=== PATIENT | female | born 1970 | race Caucasian/White ===

== ENCOUNTER 2020-08-16 09:04 | Outpatient (REF) | payer BC, SELFPAY ==
[2020-08-16 11:00] LABS: MANUAL DIFF FLAG NO
[2020-08-16 11:07] LABS: Basophils Percent Auto 0.5 % (0-2); Eosinophils Percent Auto 0.5 % (0-4); Hematocrit 39.1 % (37-47); Hemoglobin 13.3 g/dl (12.0-16.0); Imm Gran Abs Auto 0.01 X10*3/uL (0.00-0.03); Imm Gran Pct Auto 0.2 % (0.0-0.4); Lymphocytes Absolute Auto 1.1 X10*3/uL (1.2-4.9); Lymphocytes Percent Auto 27.7 % (20-40); Mean Corpuscular Hemoglobin 32.4 pg (27.0-33.0); Mean Corpuscular Volume 95.4 fL (80-98); Mean Platelet Volume 10.6 fL (9.4-12.3); Monocytes Absolute Auto 0.3 X10*3/uL (0.1-1.2); Monocytes Percent Auto 7.1 % (2-11); Neutrophils Absolute Auto 2.6 X10*3/uL (2.0-8.3); Platelet Count 216 X10*3/uL (160-400); Red Cell Distribution Width 12.3 % (11.0-16.0); White Blood Count 4.1 X10*3/uL (4.8-10.8)
[2020-08-16 11:47] LABS: Alanine Aminotransferase 13 U/L (0-31); Albumin Level 4.2 g/dL (3.5-5.0); Alkaline Phosphatase 41 U/L (39-117); Anion Gap 12 (12-20); Aspartate Amino Transferase 18 U/L (5-31); Bilirubin Total 0.4 mg/dL (0.0-1.0); Blood Urea Nitrogen 12 mg/dL (9-16); Carbon Dioxide 29 mmol/L (22-29); Chloride 103 mmol/L (96-108); Cholesterol 213 mg/dL; Estimated Glomerular Filt Rate > 60; Glucose Fasting 95 mg/dL (60-99); HDL Cholesterol 87 mg/dL; LDL Cholesterol Calculated 110 mg/dl; Potassium 4.7 mmol/l (3.3-5.1); Sodium 139 mmol/L (135-145); Total Protein 6.8 g/dL (6.5-8.0); Triglycerides 83 mg/dL
== END 2020-08-16 09:05 | disposition home or self-care (01) ==
LOC: HO.10HDL 09:04
PROVIDERS: Visit Provider Internal Medicine
DX: Z00.00 Encounter for general adult medical examination without abnormal findings (principal)
CPT/HCPCS: 36415; 80053; 80061; 85025

== ENCOUNTER 2020-09-27 11:51 | Outpatient (REF) | payer BC, SELFPAY | END 2020-09-27 11:52 | disposition home or self-care (01) | LOC: HO.WFDLDS 11:51 | PROVIDERS: Visit Provider Internal Medicine | DX: Z20.828 Contact with and (suspected) exposure to other viral communicable diseases (principal) | CPT/HCPCS: C9803; U0003 ==

== ENCOUNTER 2020-12-20 10:26 | Outpatient (REF) | payer BC, SELFPAY | END 2020-12-20 10:27 | disposition home or self-care (01) | LOC: HO.LAB 10:26 | PROVIDERS: Visit Provider Hospitalist | DX: Z20.822 Contact with and (suspected) exposure to COVID-19 (principal) | CPT/HCPCS: 36415; U0003; U0005 ==

== ENCOUNTER 2021-09-19 08:49 | Outpatient (REF) | payer BC, SELFPAY ==
[2021-09-19 10:21] LABS: Basophils Percent Auto 0.5 % (0-2); Eosinophils Absolute Auto 0.1 X10*3/uL (0.0-0.4); Eosinophils Percent Auto 1.2 % (0-4); Hematocrit 39.2 % (37.0-47.0); Hemoglobin 13.3 g/dl (12.0-16.0); Imm Gran Abs Auto 0.01 X10*3/uL (0.00-0.03); Imm Gran Pct Auto 0.2 % (0.0-0.4); Lymphocytes Absolute Auto 1.6 X10*3/uL (1.2-4.9); Lymphocytes Percent Auto 37.8 % (20-40); MANUAL DIFF FLAG NO; Mean Corpuscular HGB Conc 33.9 g/dl (31.0-35.0); Mean Corpuscular Hemoglobin 31.3 pg (27.0-33.0); Mean Corpuscular Volume 92.2 fL (80.0-98.0); Mean Platelet Volume 9.9 fL (9.4-12.3); Monocytes Absolute Auto 0.3 X10*3/uL (0.1-1.2); Monocytes Percent Auto 6.9 % (2-11); Neutrophils Absolute Auto 2.2 x10*3/uL (2.0-8.3); Neutrophils Percent Auto 53.4 % (45-73); Platelet Count 230 X10*3/uL (160-400); Red Blood Count 4.25 X10*6/uL (4.20-5.50); Red Cell Distribution Width 12.4 % (11.0-16.0); White Blood Count 4.2 X10*3/uL (4.8-10.8)
[2021-09-19 10:42] LABS: Alanine Aminotransferase 13 U/L (0-31); Albumin Level 4.2 g/dL (3.5-5.0); Alkaline Phosphatase 46 U/L (39-117); Anion Gap 11 (12-20); Aspartate Amino Transferase 18 U/L (5-31); Bilirubin Total 0.4 mg/dL (0.0-1.0); Blood Urea Nitrogen 13 mg/dL (9-16); Calcium 9.1 mg/dL (8.4-10.2); Carbon Dioxide 28 mmol/L (22-29); Chloride 106 mmol/L (96-108); Cholesterol 220 mg/dL; Estimated Glomerular Filt Rate > 60; Glucose Fasting 97 mg/dL (60-99); HDL Cholesterol 69 mg/dL; LDL Cholesterol Calculated 140 mg/dl; Potassium 4.3 mmol/L (3.3-5.1); Sodium 141 mmol/L (135-145); Total Protein 6.6 g/dL (6.5-8.0); Triglycerides 59 mg/dL
[2021-09-19 11:03] LABS: Vitamin D 25-OH Total 40.5 ng/mL (>30)
== END 2021-09-19 08:50 | disposition home or self-care (01) ==
LOC: HO.10HDL 08:49
PROVIDERS: Visit Provider Internal Medicine
DX: Z00.00 Encounter for general adult medical examination without abnormal findings (principal)
CPT/HCPCS: 36415; 80053; 80061; 82306; 85025

== ENCOUNTER 2022-02-15 10:54 | Outpatient (REF) | payer BC, SELFPAY ==
[2022-02-15 13:58] LABS: Cholesterol 207 mg/dL; HDL Cholesterol 57 mg/dL; LDL Cholesterol Calculated 137 mg/dl; Triglycerides 65 mg/dL
== END 2022-02-15 10:55 | disposition home or self-care (01) ==
LOC: HO.10HDL 10:54
PROVIDERS: Visit Provider Internal Medicine
DX: E78.00 Pure hypercholesterolemia, unspecified (principal)
CPT/HCPCS: 36415; 80061

== ENCOUNTER 2022-04-11 07:50 | Outpatient (REF) | payer BC, SELFPAY ==
[2022-04-11 11:49] LABS: Alanine Aminotransferase 13 U/L (0-31); Aspartate Amino Transferase 18 U/L (5-31); Cholesterol 201 mg/dL; HDL Cholesterol 61 mg/dL; LDL Cholesterol Calculated 127 mg/dl; Triglycerides 66 mg/dL
== END 2022-04-11 07:51 | disposition home or self-care (01) ==
LOC: HO.WFDLDS 07:50
PROVIDERS: Visit Provider Internal Medicine
DX: E78.00 Pure hypercholesterolemia, unspecified (principal)
CPT/HCPCS: 36415; 80061; 82550; 84450; 84460

== ENCOUNTER 2023-05-01 09:07 | Outpatient (REF) | payer BC, SELFPAY ==
[2023-05-01 10:37] LABS: MANUAL DIFF FLAG NO
[2023-05-01 10:43] LABS: Basophils Percent Auto 0.4 % (0-2); Eosinophils Percent Auto 0.4 % (0-4); Hematocrit 41.7 % (37.0-47.0); Hemoglobin 13.7 g/dl (12.0-16.0); Imm Gran Abs Auto 0.01 X10*3/uL (0.00-0.03); Imm Gran Pct Auto 0.2 % (0.0-0.4); Lymphocytes Absolute Auto 1.3 X10*3/uL (1.2-4.9); Lymphocytes Percent Auto 27.5 % (20-40); Mean Corpuscular HGB Conc 32.9 g/dl (31.0-35.0); Mean Corpuscular Hemoglobin 30.6 pg (27.0-33.0); Mean Corpuscular Volume 93.1 fL (80.0-98.0); Mean Platelet Volume 9.9 fL (9.4-12.3); Monocytes Absolute Auto 0.3 X10*3/uL (0.1-1.2); Monocytes Percent Auto 6.4 % (2-11); Neutrophils Absolute Auto 3.2 x10*3/uL (2.0-8.3); Neutrophils Percent Auto 65.1 % (45-73); Platelet Count 226 X10*3/uL (160-400); Red Blood Count 4.48 X10*6/uL (4.20-5.50); Red Cell Distribution Width 13.1 % (11.0-16.0); White Blood Count 4.9 X10*3/uL (4.8-10.8)
[2023-05-01 11:07] LABS: Alanine Aminotransferase 12 U/L (0-31); Albumin Level 4.5 g/dL (3.5-5.0); Alkaline Phosphatase 52 U/L (39-117); Anion Gap 15 (12-20); Aspartate Amino Transferase 21 U/L (5-31); Bilirubin Total 0.6 mg/dL (0.0-1.0); Blood Urea Nitrogen 15 mg/dL (9-16); Calcium 9.9 mg/dL (8.4-10.2); Carbon Dioxide 28 mmol/L (22-29); Chloride 101 mmol/L (96-108); Cholesterol 226 mg/dL; Estimated Glomerular Filt Rate > 60; Glucose Fasting 93 mg/dL (60-99); HDL Cholesterol 78 mg/dL; LDL Cholesterol Calculated 139 mg/dl; Potassium 4.8 mmol/L (3.3-5.1); Sodium 139 mmol/L (135-145); Total Protein 7.3 g/dL (6.5-8.0); Triglycerides 48 mg/dL
== END 2023-05-01 09:08 | disposition home or self-care (01) ==
LOC: HO.10HDL 09:07
PROVIDERS: Visit Provider Internal Medicine
DX: Z00.00 Encounter for general adult medical examination without abnormal findings (principal)
CPT/HCPCS: 36415; 80053; 80061; 85025

== ENCOUNTER 2023-09-06 | Outpatient (REF) | payer BC, SELFPAY ==
[2023-09-07 14:37] LABS: Adenovirus F 40/41 Not Detected (Not Detect.); Astrovirus Not Detected (Not Detect.); Cryptosporidium Not Detected (Not Detect.); Cyclospora cayetanensis Not Detected (Not Detect.); E. coli EAEC Not Detected (Not Detect.); E. coli EPEC Not Detected (Not Detect.); E. coli ETEC Not Detected (Not Detect.); E. coli STEC Not Detected (Not Detect.); Entamoeba histolytica Not Detected (Not Detect.); Giardia lamblia Not Detected (Not Detect.); Norovirus GI/GII Not Detected (Not Detect.); Plesiomonas shigelloides Not Detected (Not Detect.); Rotavirus A Not Detected (Not Detect.); Salmonella Not Detected (Not Detect.); Sapovirus Not Detected (Not Detect.); Shigella sp./EIEC Not Detected (Not Detect.); Vibrio Not Detected (Not Detect.); Vibrio Cholerae Not Detected (Not Detect.); Yersinia enterocolitica Not Detected (Not Detect.)
[2023-09-07 15:32] LABS: Campylobacter Detected (Not Detect.)
== END 2023-09-06 00:01 | disposition home or self-care (01) ==
LOC: HO.LNP
PROVIDERS: Visit Provider Internal Medicine
DX: R10.9 Unspecified abdominal pain (principal); R19.7 Diarrhea, unspecified
CPT/HCPCS: 87507

== ENCOUNTER 2023-09-17 10:45 | Outpatient (REF) | payer BC, SELFPAY ==
[2023-09-17 13:07] LABS: MANUAL DIFF FLAG NO
[2023-09-17 13:28] LABS: Basophils Percent Auto 0.5 % (0-2); Eosinophils Percent Auto 0.5 % (0-4); Hemoglobin 12.5 g/dl (12.0-16.0); Imm Gran Abs Auto 0.01 X10*3/uL (0.00-0.03); Imm Gran Pct Auto 0.3 % (0.0-0.4); Lymphocytes Absolute Auto 1.3 X10*3/uL (1.2-4.9); Lymphocytes Percent Auto 35.5 % (20-40); Mean Corpuscular HGB Conc 32.9 g/dl (31.0-35.0); Mean Corpuscular Hemoglobin 30.6 pg (27.0-33.0); Mean Corpuscular Volume 92.9 fL (80.0-98.0); Mean Platelet Volume 9.6 fL (9.4-12.3); Monocytes Absolute Auto 0.4 X10*3/uL (0.1-1.2); Monocytes Percent Auto 9.8 % (2-11); Neutrophils Percent Auto 53.4 % (45-73); Platelet Count 467 X10*3/uL (160-400); Red Blood Count 4.09 X10*6/uL (4.20-5.50); Red Cell Distribution Width 12.6 % (11.0-16.0); White Blood Count 3.7 X10*3/uL (4.8-10.8)
[2023-09-17 13:56] LABS: Alanine Aminotransferase 43 U/L (0-31); Albumin Level 4.1 g/dL (3.5-5.0); Alkaline Phosphatase 51 U/L (39-117); Anion Gap 12 (12-20); Aspartate Amino Transferase 33 U/L (5-31); Bilirubin Total 0.5 mg/dL (0.0-1.0); Blood Urea Nitrogen 9 mg/dL (9-16); Calcium 9.2 mg/dL (8.4-10.2); Carbon Dioxide 27 mmol/L (22-29); Chloride 105 mmol/L (96-108); Cholesterol 215 mg/dL (<200); Estimated Glomerular Filt Rate > 60; Glucose Fasting 97 mg/dL (60-99); HDL Cholesterol 51 mg/dL (>40); LDL Cholesterol Calculated 140 mg/dL (<100); Sodium 140 mmol/L (135-145); Total Protein 6.9 g/dL (6.5-8.0); Triglycerides 123 mg/dL (<150)
[2023-09-17 14:01] LABS: Vitamin D 25-OH Total 49.1 ng/mL (>30)
[2023-09-17 14:54] LABS: CDiff Gene PCR NEGATIVE (Negative)
[2023-09-17 15:30] LABS: Adenovirus F 40/41 Not Detected (Not Detect.); Astrovirus Not Detected (Not Detect.); Campylobacter Not Detected (Not Detect.); Cryptosporidium Not Detected (Not Detect.); Cyclospora cayetanensis Not Detected (Not Detect.); E. coli EAEC Not Detected (Not Detect.); E. coli EPEC Not Detected (Not Detect.); E. coli ETEC Not Detected (Not Detect.); E. coli STEC Not Detected (Not Detect.); Entamoeba histolytica Not Detected (Not Detect.); Giardia lamblia Not Detected (Not Detect.); Norovirus GI/GII Not Detected (Not Detect.); Plesiomonas shigelloides Not Detected (Not Detect.); Rotavirus A Not Detected (Not Detect.); Salmonella Not Detected (Not Detect.); Sapovirus Not Detected (Not Detect.); Shigella sp./EIEC Not Detected (Not Detect.); Vibrio Not Detected (Not Detect.); Vibrio Cholerae Not Detected (Not Detect.); Yersinia enterocolitica Not Detected (Not Detect.)
== END 2023-09-17 10:46 | disposition home or self-care (01) ==
LOC: HO.10HDL 10:45
PROVIDERS: Visit Provider Internal Medicine
DX: E78.00 Pure hypercholesterolemia, unspecified (principal); E55.9 Vitamin D deficiency, unspecified; R50.9 Fever, unspecified; R19.7 Diarrhea, unspecified
CPT/HCPCS: 36415; 80053; 80061; 82306; 85025; 87493; 87507

== ENCOUNTER 2024-05-20 15:20 | Outpatient (REF) | payer BC, SELFPAY ==
[2024-05-20 15:34] LABS: MANUAL DIFF FLAG NO
[2024-05-20 16:13] LABS: Basophils Percent Auto 0.4 % (0-2); Eosinophils Percent Auto 0.4 % (0-4); Hematocrit 39.2 % (37.0-47.0); Hemoglobin 13.6 g/dl (12.0-16.0); Imm Gran Abs Auto 0.01 X10*3/uL (0.00-0.03); Imm Gran Pct Auto 0.2 % (0.0-0.4); Lymphocytes Absolute Auto 1.8 X10*3/uL (1.2-4.9); Lymphocytes Percent Auto 36.9 % (20-40); Mean Corpuscular HGB Conc 34.7 g/dl (31.0-35.0); Mean Corpuscular Hemoglobin 31.6 pg (27.0-33.0); Mean Platelet Volume 9.9 fL (9.4-12.3); Monocytes Absolute Auto 0.3 X10*3/uL (0.1-1.2); Monocytes Percent Auto 6.9 % (2-11); Neutrophils Absolute Auto 2.7 x10*3/uL (2.0-8.3); Neutrophils Percent Auto 55.2 % (45-73); Platelet Count 214 X10*3/uL (160-400); Red Blood Count 4.31 X10*6/uL (4.20-5.50); Red Cell Distribution Width 12.2 % (11.0-16.0); White Blood Count 4.9 X10*3/uL (4.8-10.8)
[2024-05-20 16:33] LABS: Alanine Aminotransferase 10 U/L (0-31); Albumin Level 4.6 g/dL (3.5-5.0); Alkaline Phosphatase 45 U/L (39-117); Anion Gap 12 (12-20); Aspartate Amino Transferase 15 U/L (5-31); Bilirubin Total 0.6 mg/dL (0.0-1.0); Blood Urea Nitrogen 11 mg/dL (9-16); Calcium 9.9 mg/dL (8.4-10.2); Carbon Dioxide 27 mmol/L (22-29); Chloride 105 mmol/L (96-108); Estimated Glomerular Filt Rate > 60; Glucose Random 96 mg/dL (60-115); Potassium 4.8 mmol/L (3.3-5.1); Sodium 139 mmol/L (135-145); Total Protein 7.1 g/dL (6.5-8.0)
== END 2024-05-20 15:21 | disposition home or self-care (01) ==
LOC: HO.LAB 15:20
PROVIDERS: PCP Internal Medicine; Visit Provider Internal Medicine
DX: E78.00 Pure hypercholesterolemia, unspecified (principal); R63.4 Abnormal weight loss; Z86.010 Personal history of colon polyps
CPT/HCPCS: 36415; 80053; 85025

== ENCOUNTER 2024-09-29 09:52 | Outpatient (REF) | payer BC, SELFPAY ==
[2024-09-29 10:12] LABS: MANUAL DIFF FLAG NO
[2024-09-29 10:41] LABS: Basophils Percent Auto 0.5 % (0-2); Hematocrit 38.2 % (37.0-47.0); Hemoglobin 13.2 g/dl (12.0-16.0); Imm Gran Abs Auto 0.01 X10*3/uL (0.00-0.03); Imm Gran Pct Auto 0.3 % (0.0-0.4); Lymphocytes Absolute Auto 1.7 X10*3/uL (1.2-4.9); Lymphocytes Percent Auto 44.8 % (20-40); Mean Corpuscular HGB Conc 34.6 g/dl (31.0-35.0); Mean Corpuscular Hemoglobin 31.1 pg (27.0-33.0); Mean Corpuscular Volume 89.9 fL (80.0-98.0); Mean Platelet Volume 9.4 fL (9.4-12.3); Monocytes Absolute Auto 0.3 X10*3/uL (0.1-1.2); Monocytes Percent Auto 7.5 % (2-11); Neutrophils Absolute Auto 1.8 x10*3/uL (2.0-8.3); Neutrophils Percent Auto 45.9 % (45-73); Platelet Count 233 X10*3/uL (160-400); Red Blood Count 4.25 X10*6/uL (4.20-5.50); Red Cell Distribution Width 12.5 % (11.0-16.0); White Blood Count 3.9 X10*3/uL (4.8-10.8)
[2024-09-29 11:03] LABS: Alanine Aminotransferase 18 U/L (0-31); Albumin Level 4.5 g/dL (3.5-5.0); Alkaline Phosphatase 45 U/L (39-117); Anion Gap 8 (12-20); Aspartate Amino Transferase 22 U/L (5-31); Bilirubin Total 0.5 mg/dL (0.0-1.0); Blood Urea Nitrogen 9 mg/dL (9-16); Calcium 9.5 mg/dL (8.4-10.2); Carbon Dioxide 30 mmol/L (22-29); Chloride 106 mmol/L (96-108); Cholesterol 201 mg/dL (<200); Estimated Glomerular Filt Rate > 60; Glucose Fasting 101 mg/dL (60-99); HDL Cholesterol 62 mg/dL (>40); LDL Cholesterol Calculated 127 mg/dL (<100); Potassium 4.1 mmol/L (3.3-5.1); Sodium 140 mmol/L (135-145); Triglycerides 62 mg/dL (<150)
== END 2024-09-29 09:53 | disposition home or self-care (01) ==
LOC: HO.LAB 09:52
PROVIDERS: PCP Internal Medicine; Visit Provider Internal Medicine
DX: E78.00 Pure hypercholesterolemia, unspecified (principal)
CPT/HCPCS: 36415; 80053; 80061; 85025

== ENCOUNTER 2025-02-05 09:29 | Outpatient (AMB) | payer OTHER, SELFPAY ==
--- NOTE | 2025-02-05 09:30 | A.OFFPC_ITS ---
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 Seen in Oct for annual. BH: On buproprion 300mg daily, naltrexone and xanax prn. 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 Upcoming Colonoscopy up to date Nov-10 years ROS CONSTITUTIONAL: Denies weight loss, fever and chills. HEENT: Denies changes in vision and hearing. RESPIRATORY: Denies SOB and cough. CV: Denies palpitations and CP GI: Denies abdominal pain, nausea, vomiting and diarrhea. : Denies dysuria and urinary frequency. MSK: Denies new myalgia and joint pain. SKIN: Denies rash and pruritus. NEUROLOGICAL: Denies headache PSYCHIATRIC: Denies recent changes in mood. PHYSICAL EXAM: GENERAL: Alert and oriented x 3. NAD EYES: EOMI. Anicteric. HENT: Moist mucous membranes. No scleral icterus. right thyroid nodule LUNGS: Clear to auscultation bilaterally. CARDIOVASCULAR: Regular rate and rhythm. No murmur. No JVD. ABDOMEN: Soft, non-tender +bs EXTREMITIES: No edema. Non-tender. SKIN: No rashes or lesions. Warm. NEUROLOGIC: No focal neurological deficits. CN II-XII grossly intact PSYCHIATRIC: Cooperative. Appropriate mood and affect [facility] Medical History Depression Anxiety Abnormal colonoscopy Surgical History H/O colonoscopy No pertinent past surgical history Family History Mother No problems noted. Father Prostate CA Social History Housing: House Patient Tobacco Use Status: Never used Tobacco e-Cigarette/Vaping Use: Never Used Advance Directives Date on File: 08/16/20 service: No Current occupational status: retired Cognitive needs: No Hearing needs: No Vision needs: Yes (rx glagless) Questionnaire PHQ-9 Over the last 2 weeks, how often have you been bothered by any of the following problems? 1. Little interest or pleasure in doing things: not at all 2. Feeling down, depressed, or hopeless: not at all 3. Trouble falling or staying asleep, or sleeping too much: not at all 4. Feeling tired or having little energy: not at all 5. Poor appetite or overeating: not at all 6. Feeling bad about yourself - or that you are a failure or have let yourself or your family down: not at all 7. Trouble concentrating on things, such as reading the newspaper or watching television: not at all 8. Moving or speaking so slowly that other people could have noticed. Or the opposite - being so fidgety or restless that you have been moving around a lot more than usual: not at all 9. Thoughts that you would be better off or of hurting yourself in some way: not at all Total score: 0 Source: Developed by Drs. Florencio Beltran, Grazyna Rivera, Marky Haines and colleagues, with an educational beny from [employer]. Thrive Questionnaire Date Thrive assessed: 02/05/25 I am a: Patient Within the past 12 months, did the food you bought not last and you didn't have the money to get more?: Never true Within the past 12 months, did you worry whether your food would run out before you got money to buy more?: Never true Do you have trouble paying for medicines?: No Do you have trouble getting transportation to medical appointments?: No Do you have trouble paying your heating and electricity bill?: No Do you have trouble taking care of your child, family member or friend?: No Do you have trouble with day-to-day activities such as bathing, preparing meals, shopping, managing finances, etc.?: No Are you currently unemployed and looking for a job?: No Are you interested in more education?: No THRIVE Score: 0 AUDIT C Alcohol Use Questionnaire (AUDIT-C) 1. How often do you have a drink containing alcohol?: Never 3. How often do you have six or more drinks on one occasion?: Never Total Score: 0 GAURI-7 AMB Questionnaire GAURI-7 Date GAURI - 7 assessed: 02/05/25 Feeling nervous, anxious, or on edge: 0 = Not at all Not being able to stop or control worryin = Not at all Worrying too much about different things: 0 = Not at all Trouble relaxin = Not at all Being so restless that it is hard to sit still: 0 = Not at all Becoming easily annoyed or irritable: 0 = Not at all Feeling afraid as if something awful might happen: 0 = Not at all Total GAURI-7 score (0-4 normal; 5-9 mild; 10-14 moderate; 15-21 severe): 0 Source: Developed by Drs. Florencio Beltran, Grazyna Rivera, Marky Haines and colleagues, with an educational beny from [employer]. Physical exam (Primary Care) Tobacco/Smoking Status: Tobacco use Status Tobacco use date assessed 02/05/25 02/05/25 09:33 Patient Tobacco Use Status Never used Tobacco 02/05/25 09:33 e-Cigarette/Vaping Use Never Used 02/05/25 09:33 PHQ-9: PHQ-9 Score PHQ-9: Total score 0 02/05/25 09:33 Thrive Assessment: Date of Thrive Assessment Date Thrive assessed 02/05/25 02/05/25 09:33 Coding Level of Care Code New Pt Level 4 (10059) Diagnoses Anxiety F41.9 Elevated glucose R73.09 Leukopenia, unspecified type D72.819 Leukopenia type: unspecified Thyroid nodule E04.1 Assessment & Plan Assessment & Plan (1) Anxiety: Code(s): F41.9 - Anxiety disorder, unspecified Category: Medical (2) Elevated glucose: Code(s): R73.09 - Other abnormal glucose Category: Medical (3) Decreased white blood cell count: Code(s): D72.819 - Decreased white blood cell count, unspecified Category: Medical Qualifiers: Leukopenia type: unspecified Qualified Code(s): D72.819 - Decreased white blood cell count, unspecified (4) Thyroid nodule: Code(s): E04.1 - Nontoxic single thyroid nodule Category: Medical Plan 54 yo to establish care Past medical, surgical, social family history reviewed Labs ordered Thyroid nodule right mid/upper-u/s ordered. check tsh with next labs Refills sent Orders: Orders TSH reflex Free T4 6 Months D72.819 - Decreased white blood cell count, unspecified, E04.1 - Nontoxic single thyroid nodule, F41.9 - Anxiety disorder, unspecified, R73.09 - Other abnormal glucose Complete Blood Count Auto Diff 6 Months D72.819 - Decreased white blood cell count, unspecified, E04.1 - Nontoxic single thyroid nodule, F41.9 - Anxiety disorder, unspecified, R73.09 - Other abnormal glucose Comprehensive Met. Panel 6 Months D72.819 - Decreased white blood cell count, unspecified, E04.1 - Nontoxic single thyroid nodule, F41.9 - Anxiety disorder, unspecified, R73.09 - Other abnormal glucose US thyroid 6 Months D72.819 - Decreased white blood cell count, unspecified, E04.1 - Nontoxic single thyroid nodule, F41.9 - Anxiety disorder, unspecified, R73.09 - Other abnormal glucose Hemoglobin A1c 6 Months D72.819 - Decreased white blood cell count, unspecified, E04.1 - Nontoxic single thyroid nodule, F41.9 - Anxiety disorder, unspecified, R73.09 - Other abnormal glucose Medications: New alprazolam (Xanax) 0.25 mg PO BEDTIME PRN 60 tabs 1RF Anxiety F41.9 - Anxiety disorder, unspecified bupropion HCl XL 300 mg PO DAILY 90 tabs 3RF naltrexone 50 mg PO DAILY 90 tabs 3RF
[2025-02-05 09:36] VITALS: BP 118/70; TEMP 36.2
== END 2025-02-05 09:57 | disposition home or self-care (01) ==
LOC: HO.HMCHD 09:29
PROVIDERS: PCP Internal Medicine; Visit Provider Internal Medicine
DX: F41.9 Anxiety disorder, unspecified (principal); R73.09 Other abnormal glucose; D72.819 Decreased white blood cell count, unspecified; E04.1 Nontoxic single thyroid nodule

== ENCOUNTER → 2025-02-05 09:29 | Outpatient (BNVA) | payer OTHER, SELFPAY | PROVIDERS: PCP Internal Medicine; Visit Provider Internal Medicine ==

== ENCOUNTER 2025-08-06 09:36 | Outpatient (AMB) | payer OTHER, SELFPAY ==
--- OUTSIDE RECORDS SUMMARY | 2024-12-12 09:20 | XMS_ITS ---
Author Organization [facility] Address [address] [place] [id number] Care Team Providers Care Schedule Manager Name Role Phone Sandeep (RETIRED) Dwayne LEONARD Primary Care Provide r Arpit Jmiénez Jr REASON FOR VISIT screening Encounters Encounter Location Date Provider Diagnosis [facility] Outpatient [address] [place] [phone] 12/12/2024 Arpit Navas Jr Colon cancer screening Z12.11 and Personal history of colonic polyps Z86.0100 Assessments Encounter Date Diagnosis (ICD Code) Assessment Notes Treatment Notes Treatment Clinical Notes Section Notes 12/12/2024 Colon cancer screening (ICD-10 - Z12.11) 12/12/2024 Personal history of colonic polyps (ICD-10 - Z86.0100) Plan Of Treatment No Information Progress Notes * RAFI MUNOZOB: [birth year] (55 yo F)Acc No.[id number]:12/12/2024 COLON WITH MAC Patient: RAFI LOGAN Provider: Jaden Navas MD :1970 A ge:54 Y S ex:Female Date:12/12/2024 Address:[address] [place], [place] [phone] Pcp:Dwayne Hopkins (RETIRED )MD Subjective: * Chief Complaints: * 1 . Screening. * Medical History: Objective: * Vitals: Assessment: * Assessment: 1. C olon cancer screening - Z12.11 (Primary) 2 . P ersonal history of colonic polyps - Z86.0100 Plan: * Treatment: * Procedure Codes: 4 5378 DIAGNOSTIC COLONOSCOPY, 0529F INTRVL 3+YRS PTS CLNSCP DOCD, 0528F RCMND FLW-UP 10 YRS DOCD * * The named appointment provid er may or may not be the originator of this progress note, and it is not deemed complete until electronically signed by the appointment provider. Sign off status: Pending * Provider: Jaden Navas MD Date: 0 12/12/2024 Generated for Evelina heard/Darrin/Ravenitting on: 0 08/06/2025 11:12 AM EDT
--- NOTE | 2025-08-06 09:39 | A.OFFPC_ITS ---
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 Accompanied by: Self / Same As Patient Allergies codeine Adverse Reaction (Intermediate, Verified 08/06/25 09:39) Throwing up , Dizzness Medication List - Last Reconciled 08/06/25 by Alvin Garcia MD alprazolam (Xanax) 0.25 mg PO BEDTIME PRN bupropion HCl XL 300 mg PO DAILY magnesium 200 mg PO DAILY multivitamin 1 tab PO DAILY naltrexone 50 mg PO DAILY sertraline 50 mg PO DAILY Tobacco use date assessed: 02/05/25 Dental Screening Dental Screen Date: 08/06/25 Did you have a dental visit in the last 12 months?: Yes Did you have a dental problem in the last 6 months where you did not have access to dental care?: No Was dental information given to patient?: Patient has dentist HPI HPI Comments History of Present Illness Details The patient is a 55-year-old female presenting with a scratchy throat, which began a few days ago. She denies recent exposure to anyone known to be sick, although she has been visiting her father in a long-term where there have been cases of COVID-19. She has been wearing a mask during these visits and intends to get COVID tested to ensure she is not infected. The patient also reports feeling depressed, which she attributes to her ongoing divorce. Her mood has been low, despite being on bupropion and sertraline, which were prescribed to help manage her depressive symptoms. She has been experiencing increased anxiety since the introduction of sertraline. The patient reveals she was initially prescribed naltrexone during a rehabilitation program but has not been taking it for several months. She is not consuming alcohol currently. She expresses concerns regarding her anxiety, especially after starting sertraline alongside bupropion. She sporadically uses alprazolam for anxiety, though she acknowledges the potential for dependency with regular use. Finally, the patient reports a previous thyroid nodule, which was identified but not followed up with diagnostic imaging. Medical History: - Depressive disorder, treated with bupr opion and sertraline - Generalized anxiety disorder - Tobacco use disorder - History of substance use disorder, butch ated with naltrexone - Hyperlipidemia Medications: - Bupropion for depression and anxiety ( dosage not specified) - Sertraline 50 mg for depression and an xiety - Alprazolam for anxiety (taken sporadic ally) - Multivitamin - Naltrexone (not currently taken) - Previously prescribed but not currentl y on: alprazolam Family History: - No specific family history of diseases discussed Diagnostic Results: - Labs: Elevated cholesterol level noted previously - Tests and diagnostics: No recent imagi ng or lab results discussed Social: - Status: Currently going through a [employer] - Substance use: Not currently consuming alcohol - Smoking history: Tobacco use disorder - Visits father in a long-term where COVID-19 is present [facility] Medical History (Updated 08/06/25 @ 10:12 by Alvin Garcia MD) Hyperlipidemia Encounter for general adult medical examination without abnormal findings Depression Anxiety Abnormal colonoscopy Surgical History (Updated 04/15/25 @ 14:57 by Phoebe Saldana) H/O colonoscopy (~12/12/24) No pertinent past surgical history Family History Mother No problems noted. Father Prostate CA Social History Housing: House Patient Tobacco Use Status: Never used Tobacco e-Cigarette/Vaping Use: Never Used Advance Directives Date on File: 08/16/20 service: No Current occupational status: retired Current occupation: stay at home mom Cognitive needs: No Hearing needs: No Vision needs: Yes (rx glagless) Questionnaire Thrive Questionnaire Date Thrive assessed: 02/05/25 AUDIT C Alcohol Use Questionnaire (AUDIT-C) 1. How often do you have a drink containing alcohol?: Never 3. How often do you have six or more drinks on one occasion?: Never Total Score: 0 GAURI-7 AMB Questionnaire GAURI-7 Date GAURI - 7 assessed: 02/05/25 Source: Developed by Drs. Florencio Beltran, Grayzna Rivera, Marky Haines and colleagues, with an educational beny from [employer]. Review of Systems Const Details: - ENT: Reports scratchy throat for a few days, denies recent exposure to sick individuals outside of long-term visits - Psychological: Reports feelings of depression and anxiety, mood described as low - General: Denies current alcohol use All systems reviewed & are unremarkable except as reviewed in HPI and above Physical exam (Primary Care) Vital Signs: Last Vital Signs Temp 97.1 F 08/06/25 09:54 Resp 18 08/06/25 09:54 BP 118/74 08/06/25 09:54 BMI result Body Mass Index 16.6 Tobacco/Smoking Status: Tobacco use Status Tobacco use date assessed 02/05/25 08/06/25 09:41 Patient Tobacco Use Status Never used Tobacco 08/06/25 09:41 e-Cigarette/Vaping Use Never Used 08/06/25 09:41 Thrive Assessment: Date of Thrive Assessment Date Thrive assessed 02/05/25 08/06/25 09:41 Const Other: General: +Alert and oriented, Well nourished, No acute distress. Eye: Pupils are equal, round and reactive to light, Intact accommodation, Extraocular movements are intact, Normal conjunctiva, Vision unchanged. HENT: Normocephalic, Atraumatic, Tympanic membranes are clear, Normal hearing, Oral mucosa is moist, No pharyngeal erythema, Ear canals patent. Respiratory: Lungs CTA bilaterally, No wheeze, Respirations are non-labored. Cardiovascular: Regular rate, Regular rhythm, S1 auscultated, S2 auscultated, No murmur, Good pulses equal in all extremities, Normal peripheral perfusion, No edema. Gastrointestinal: Soft, Non-tender, Non-distended, Normal bowel sounds, No organomegaly. Musculoskeletal: Normal range of motion, Normal strength, No tenderness, No swelling, No deformity, Normal gait. Integumentary: Warm, Dry, [place], Intact. Neurologic: Alert, Oriented, Normal sensory, Normal motor function, No focal defects, Cranial Nerves II-XII are grossly intact, Normal deep tendon reflexes. Psychiatric: Cooperative, Depressed mood, Appropriate affect, Normal judgment. Coding Level of Care Code Est Pt Level 4 (20801) Complex EM visit Add On G2211 Diagnoses Anxiety F41.9 Depression, unspecified depression type F32.A Depression Type: unspecified Hyperlipidemia, unspecified hyperlipidemia type E78.5 Hyperlipidemia type: unspecified Thyroid nodule E04.1 Assessment & Plan Assessment & Plan (1) Anxiety: Comment: - Patient is on bupropion and sertraline, which were prescribed for depressive symptoms. The patient is advised to continue therapy, understanding that sertraline may take some time to manifest its full effect. - Follow-up with psychiatrist is recommended to assess current medication efficacy and explore any necessary dosage adjustments. - The patient has been using alprazolam sporadically and is advised to minimize or avoid usage due to the risk of dependency. Code(s): F41.9 - Anxiety disorder, unspecified Category: Medical (2) Depression: Comment: - Patient is on bupropion and sertraline, which were prescribed for depressive symptoms. The patient is advised to continue therapy, understanding that sertraline may take some time to manifest its full effect. - Follow-up with psychiatrist is recommended to assess current medication efficacy and explore any necessary dosage adjustments. Code(s): F32.A - Depression, unspecified Category: Medical Qualifiers: Depression Type: unspecified Qualified Code(s): F32.A - Depression, unspecified (3) Hyperlipidemia: Comment: - The patient has had elevated cholesterol in past blood work. Further blood testing, including cholesterol levels, is advised to guide management. Code(s): E78.5 - Hyperlipidemia, unspecified Category: Medical Qualifiers: Hyperlipidemia type: unspecified Qualified Code(s): E78.5 - Hyperlipidemia, unspecified (4) Thyroid nodule: Comment: - An ultrasound has been ordered to assess and follow up on the previously identified thyroid nodule. Code(s): E04.1 - Nontoxic single thyroid nodule Category: Medical Plan: Health maintenance: - Blood work ordered to assess cholesterol, thyroid function, sugars, and complete blood count - Follow-up on thyroid ultrasound for thyroid health evaluation - Routine screenings including mammogram and Pap smear discussed - Encourage lifestyle modifications to manage elevated cholesterol Patient was informed and verbally consented to the use of an ambient scribe for clinic note documentation during this visit. Plan During the visit, I discussed the patient's current feelings of depression and the use of medications like bupropion and sertraline. I emphasized the importance of consistent follow-up with a psychiatrist to evaluate medication efficacy and address any side effects. Given the potential dependency on alprazolam, I recommended minimizing its use and focusing on psychotherapy for anxiety management. The patient was advised about the need for routine health maintenance blood tests and the importance of dietary changes to manage cholesterol levels. The discussion also included how to proceed with the assessment of a previously found thyroid nodule via ultrasound. The patient agreed to comply with the discussed plans, including adherence to medication and scheduled screenings. Orders: Orders Comprehensive Met. Panel Today E78.5 - Hyperlipidemia, unspecified, Z00.00 - Encounter for general adult medical examination without abnormal findings Lipid Panel Today E78.5 - Hyperlipidemia, unspecified, Z00.00 - Encounter for general adult medical examination without abnormal findings TSH reflex Free T4 Today E78.5 - Hyperlipidemia, unspecified, Z00.00 - Encoun ter for general adult medical examination without abnormal findings Vitamin D 25-OH Total Today E78.5 - Hyperlipidemia, unspecified, Z00.00 - Encounter for general adult medical examination without abnormal findings Complete Blood Count Auto Diff Today E78.5 - Hyperlipidemia, unspecified, Z00.00 - Encounter for general adult medical examination without abnormal findings Hemoglobin A1c Today E78.5 - Hyperlipidemia, unspecified, Z00.00 - Encounter for general adult medical examination without abnormal findings US thyroid Today E04.1 - Nontoxic single thyroid nodule Patient Instructions: - Get tested for COVID-19 if visiting your father's long-term. - Continue taking bupropion and sertraline. - Minimize usage of alprazolam. - Follow up with your psychiatrist about your medications. - Go to the lab for blood work as directed. - Await the ultrasound department's call for scheduling an appointment for your thyroid nodule. - Maintain a healthy diet to manage cholesterol levels. - Attend all routine screenings and follow-ups as scheduled. - Contact us or your psychiatrist if you experience significant changes in mood or anxiety.
[2025-08-06 09:54] VITALS: BP 118/74; RESP 18; TEMP 36.2; BMI 16.6
--- OUTSIDE RECORDS SUMMARY | 2025-08-06 11:13 | XMS_ITS | Patient Health Record ---
Author Organization [facility] Address [address] [place] [address] Care Team Providers Care Rating Specialist Name Role Phone Sandeep (RETIRED) Dwayne LEONARD Primary Care Provide Arpit Quiroz Jr Unavailable Allergies Allergen (clinical drug ingredient) Drug/Non Drug Allergy documented on EMR Reaction Allergy Type Onset Date Status codeine Codeine Sulfate Unknown Drug Allergy A ctive Reason For Referral No Information Medications Medication SIG (Take, Route, Frequency, Duration) Notes Start Date End Date Status MiraLax (colon prep) 17 GM/SCOOP mixed with Gatorade or Crystal Light Orally begin at 5:00 p.m. the day before the procedure for 1 day 11/27/2024 Active Multivitamin Adults - as directed Orally Active Naltrexone HCl 50 MG TAKE 1 TABLET BY MO UTH DAILY Oral for 90 Active buPROPion HCl ER (XL) 300 MG TAKE 1 TABLET BY MOUTH EVERY DAY Oral for 30 Active Immunizations Vaccine Route Administration Date Status Comme nts Influenza Unknown 08/12/2019 Administered Social History Tobacco Use: Social History Observation Description Date Details (start date - stop date) Never Smoker NA - NA Tobacco Use/Smoking Question Answer Notes Patient is a nonsmoker Alcohol Screen Question Answer Notes Did you have a drink containing alcohol in the p ast year? No Points 0 Interpretation Negative Problems Problem Type SNOMED Code ICD Code Onset Dates Problem Status W/U Status Risk Notes Problem 801572904 Colon cancer screening (Z12.11) Active confirmed Problem 292568549 Encounter for other preprocedural examination (Z01.818) Active confirmed Vital Signs Blood pressure diastolic 00 mm Hg 11/27/2024 Height 67 in 11/27/2024 Blood pressure systolic 00 mm Hg 11/27/2024 Weight 113 lbs 11/27/2024 BMI 17.70 kg/m2 11/27/2024 Encounters Encounter Location Date Provider Diagnosis [facility] [place] [facility] [address] [place], [place] [id number] 12/12/2024 Arpit Navas Jr Colon cancer screening Z12.11 and Personal history of colonic polyps Z86.0100 [facility] [address] [place] [address] 11/27/2024 Arpitkiran Navas Jr Colon cancer screening Z12.11 and Encounter for other preprocedural examination Z01.818 Assessments Encounter Date Diagnosis (ICD Code) Assessment Notes Treatment Notes Treatment Clinical Notes Section Notes 12/12/2024 Colon cancer screening (ICD-10 - Z12.11) 12/12/2024 Personal history of colonic polyps (ICD-10 - Z86.0100) 11/27/2024 Colon cancer screening (ICD-10 - Z12.11) Colonoscopy material was printed We discussed colonoscopy today. We discussed risks and benefits of the procedure today. She understands these and agrees to proceed. 11/27/2024 Encounter for other preprocedural examination (ICD-10 - Z01.818) We discussed colonoscopy today. We discussed risks and benefits of the procedure today. She understands these and agrees to proceed. Plan Of Treatment Future Test Test Name Order Date COLONOSCOPY 09/04/2019 COLONOSCOPY 11/27/2024 Insurance Providers Payer Name Payer Address Payer Phone Subscriber Number Group Number Insured Name Patient Relationship to Insured Coverage Start Date Coverage End Date [facility] [address] [place] [phone] [id number] RAFI MUNOZ ELLEN Self - patient is the insured Medical (General) History Medical History History ICD Code Anxiety Colonoscopy 10/30, tubular adenoma, five -year followup Surgical History Surgery Date(Month/Year)
== END 2025-08-06 10:12 | disposition home or self-care (01) ==
PROVIDERS: PCP Student in an Organized Health Care Education/Training Program; Visit Provider Student in an Organized Health Care Education/Training Program
DX: F41.9 Anxiety disorder, unspecified (principal); F32.A Depression, unspecified; E78.5 Hyperlipidemia, unspecified; E04.1 Nontoxic single thyroid nodule

== ENCOUNTER 2025-08-06 10:18 | Outpatient (REF) | payer OTHER, SELFPAY ==
[2025-08-06 12:33] LABS: MANUAL DIFF FLAG NO
[2025-08-06 12:36] LABS: Hematocrit 41.4 % (37.0-47.0); Hemoglobin 14.1 g/dl (12.0-16.0); Imm Gran Abs Auto 0.01 X10*3/uL (0.00-0.03); Imm Gran Pct Auto 0.2 % (0.0-0.4); Lymphocytes Absolute Auto 1.6 X10*3/uL (1.2-4.9); Mean Corpuscular HGB Conc 34.1 g/dl (31.0-35.0); Mean Corpuscular Hemoglobin 31.9 pg (27.0-33.0); Mean Corpuscular Volume 93.7 fL (80.0-98.0); NRBC Abs Auto 0.000 X10*3/uL (0.0-0.012); NRBC Pct Auto 0.0 /100WBC (0.0-0.2); Platelet Count 255 X10*3/uL (160-400); Red Blood Count 4.42 X10*6/uL (4.20-5.50); White Blood Count 5.0 X10*3/uL (4.8-10.8)
[2025-08-06 13:02] LABS: Hemoglobin A1C 128.7942 umol/L; Total Hemoglobin (HGBA1C) 3685.3573 umol/L
[2025-08-06 13:19] LABS: Alanine Aminotransferase 20 U/L (0-31); Albumin Level 4.9 g/dL (3.5-5.0); Alkaline Phosphatase 51 U/L (39-117); Anion Gap 12 (12-20); Aspartate Amino Transferase 28 U/L (5-31); Blood Urea Nitrogen 11 mg/dL (9-16); Calcium 9.5 mg/dL (8.4-10.2); Carbon Dioxide 30 mmol/L (22-29); Chloride 105 mmol/L (96-108); Cholesterol 253 mg/dL (<200); Estimated Glomerular Filt Rate > 60; HDL Cholesterol 89 mg/dL (>40); Potassium 4.7 mmol/L (3.3-5.1); Sodium 142 mmol/L (135-145); Total Protein 7.4 g/dL (6.5-8.0); Triglycerides 76 mg/dL (<150)
== END 2025-08-06 10:19 | disposition home or self-care (01) ==
LOC: HO.10HDL 10:18
PROVIDERS: Visit Provider Student in an Organized Health Care Education/Training Program
DX: Z00.00 Encounter for general adult medical examination without abnormal findings (principal); E78.5 Hyperlipidemia, unspecified; Z13.1 Encounter for screening for diabetes mellitus
CPT/HCPCS: 36415; 80053; 80061; 82306; 83036; 84443; 85025

== ENCOUNTER 2025-10-28 13:51 | Outpatient (REF) | payer OTHER, SELFPAY ==
--- OUTSIDE RECORDS SUMMARY | 2024-12-12 08:20 | XMS_ITS ---
Author Organization [facility] Address [address] [place] [id number] Care Team Providers Care Jewel Grinder Name Role Phone Sandeep (RETIRED) Dwayne LEONARD Primary Care Provide r Arpit Jiménez Jr REASON FOR VISIT screening Encounters Encounter Location Date Provider Diagnosis [facility] Outpatient [address] [place] [id number] 12/12/2024 Arpit Navas Jr Colon cancer screening Z12.11 and Personal history of colonic polyps Z86.0100 Assessments Encounter Date Diagnosis (ICD Code) Assessment Notes Treatment Notes Treatment Clinical Notes Section Notes 12/12/2024 Colon cancer screening (ICD-10 - Z12.11) 12/12/2024 Personal history of colonic polyps (ICD-10 - Z86.0100) Plan Of Treatment No Information Progress Notes * RAFI MUNOZOB: [birth year] (55 yo F)Acc No.[id number]:12/12/2024 COLON WITH MAC Patient: RAFI LOGAN Provider: Jdaen Navas MD :1970 A ge:54 Y S ex:Female Date:12/12/2024 Address:[address] [place], [place] [id number] Pcp:Dwayne Hopkins (RETIRED )MD Subjective: * Chief Complaints: * S creening Assessment: * Assessment: 1. C olon cancer screening - Z12.11 (Primary) 2 . P ersonal history of colonic polyps - Z86.0100 Plan: * Procedure Codes: 4 5378 DIAGNOSTIC [id number] INTRVL 3+YRS PTS CLNSCP [id number] RCMND FLW-UP 10 YRS DOCD Billing Information: * Procedure Codes: 34412 DIAGNOSTIC COLONOSCOPY. 0529F INTRVL 3+YRS PTS CLNSCP DOCD. 0528F RCMND FLW-UP 10 YRS DOCD. * The named appointment provid er may or may not be the originator of this progress note, and it is not deemed complete until electronically signed by the appointment provider. Sign off status: Pending * Provider: Jaden Navas MD Date: 0 12/12/2024 Generated for Evelina heard/Darrin/Ravenitting on: 12/29/2024 06:24 PM EST
--- NOTE | ~2025-10-28 | US_ITS ---
EXAMINATION: US THYROID HISTORY: E04.1 - Nontoxic single thyroid nodule TECHNIQUE: Real-time grayscale ultrasound imaging was performed and images were reviewed. COMPARISON: There are no prior studies available for comparison. FINDINGS: SIZE: The right thyroid lobe measures 4.3 x 1.9 x 1.8 cm. The left thyroid lobe measures 4.5 x 1.5 x 1.5 cm. The isthmus measures 2 mm. FLOW: Flow to the gland is normal. ECHOGENICITY: The echotexture of the gland is homogeneous. NODULES: There are cystic nodules noted in the isthmus measuring 4 x 2 x 3 mm, at the upper pole of the left thyroid lobe measuring 3 x 3 x 3 mm, and at the lower pole of the left thyroid lobe measuring 3 x 1 x 2 mm. No solid nodules are identified. US/US thyroid IMPRESSION: No solid nodules are identified. ACR TI-RADS Guidelines TR1 (0 points): Benign. No follow-up or biopsy required TR2 (2 points): Not Suspicious. No biopsy or follow up indicated TR3 (3 points): Mildly Suspicious. FNA if >= 2.5 cm, Follow if >= 1.5 cm TR4 (4-6 points): Moderately Suspicious. FNA if >= 1.5 cm, Follow if >= 1.0 cm TR5 (>=7 points): Highly Suspicious. FNA if >= 1.0 cm, Follow if >= 0.5 cm Electronically signed by: Florencio Izaguirre MD 10/28/2025 02:54 PM EST
--- OUTSIDE RECORDS SUMMARY | 2025-10-28 18:24 | XMS_ITS | Patient Health Record ---
Author Organization [facility] Address [address] [place] [address] Care Team Providers Care Environmental Remediation Consultant Name Role Phone Sandeep (RETIRED) Dwayne LEONARD Primary Care Provide Arpit Quiroz Jr Unavailable Allergies Allergen (clinical drug ingredient) Drug/Non Drug Allergy documented on EMR Reaction Allergy Type Onset Date Status codeine Codeine Sulfate Unknown Drug Allergy A ctive Reason For Referral No Information Medications Medication SIG (Take, Route, Frequency, Duration) Notes Start Date End Date Status MiraLax (colon prep) 17 GM/SCOOP Powder mixed with Gatorade or Crystal Light Orally begin at 5:00 p.m. the day before the procedure; Duration: 1 day 11/27/2024 Active Multivitamin Adults - Tablet as directed Orally Active Naltrexone HCl 50 MG Tablet TAKE 1 TABLE T BY MOUTH DAILY Oral; Duration: 90 Active buPROPion HCl ER (XL) 300 MG Tablet Extended Release 24 Hour TAKE 1 TABLET BY MOUTH EVERY DAY Oral; Duration: 30 Active Immunizations Vaccine Route Administration Date Status Comme nts Influenza Unknown 08/12/2019 Administered Social History Tobacco Use: Social History Observation Description Date Details (start date - stop date) Never Smoker NA - NA Social History Drugs/Alcohol: Social Info Question Answer Notes Alcohol Screen Did you have a drink containing alcohol in the past year? No Points 0 Interpretation Negative Tobacco Use: Social Info Question Answer Notes Tobacco Use/Smoking Patient is a nonsmoker Additional Details Category Social Info Options Details Miscellaneous: Marital status: Occupation: HOMEMAKER Problems Problem Type SNOMED Code ICD Code Onset Dates Problem Status W/U Status Risk Notes Problem Colon cancer screening (236849947) Colon cancer screening (Z12.11) Active confirmed Problem Pre-procedure evaluation check (775605076) Encounter for other preprocedural examination (Z01.818) Active confirmed Vital Signs Blood pressure diastolic 00 mm Hg 11/27/2024 Height 67 in 11/27/2024 Blood pressure systolic 00 mm Hg 11/27/2024 Weight 113 lbs 11/27/2024 BMI 17.70 kg/m2 11/27/2024 Encounters Encounter Location Date Provider Diagnosis [facility] [place] [address], [place] [id number] 12/12/2024 Arpit Navas Jr Colon cancer screening Z12.11 and Personal history of colonic polyps Z86.0100 [facility] [address] [place] [address] 11/27/2024 Arpit Navas Jr Colon cancer screening Z12.11 [...] Insured Coverage Start Date Coverage End Date [facility] [address] [place] [phone] [id number] RAFI MUNOZ ELLEN Self - patient is the insured Medical (General) History Medical History History ICD Code Anxiety Colonoscopy 10/30, tubular adenoma, five -year followup Surgical History Surgery Date(Month/Year)
== END 2025-10-28 13:52 ==
LOC: HO.US 13:51
PROVIDERS: PCP Physician Assistant; Visit Provider Student in an Organized Health Care Education/Training Program
DX: E04.1 Nontoxic single thyroid nodule (principal)
CPT/HCPCS: 76536

== ENCOUNTER → 2025-10-28 13:52 | Outpatient (BNV) | payer OTHER, SELFPAY | PROVIDERS: PCP Physician Assistant; Visit Provider Radiology Diagnostic Radiology | DX: E04.1 Nontoxic single thyroid nodule (principal) | CPT/HCPCS: 76536 ==